=== PATIENT | female | born 1985 | race African-American/Black ===

== ENCOUNTER 2024-12-31 09:30 | Emergency (ER) | payer MEDICAID, OTHER ==
[~2024-12-31] VITALS: Ht 167.6 cm; Wt 54.0 kg
[2024-12-31 09:42] VITALS: O2SAT 100
[2024-12-31 10:29] LABS: CLARITY URINE CLEAR (CLEAR); COLOR URINE YELLOW (YELLOW); GLUCOSE URINE NEGATIVE (NEGATIVE); KETONES URINE NEGATIVE (NEGATIVE); LEUKOCYTE ESTERASE URINE NEGATIVE (NEGATIVE); NITRITE URINE NEGATIVE (NEGATIVE); OCCULT BLOOD URINE 3+ (NEGATIVE); PH URINE 7.5 (4.5-8.0); PROTEIN URINE 1+ (NEGATIVE); SPECIFIC GRAVITY URINE 1.021 (1.005-1.030); UROBILINOGEN URINE 1.0 E.U./dL (0.2-1.0)
[2024-12-31 11:42] LABS: BASOPHILS % 0.8 % (0.0-2.0); EOSINOPHILS % 1.0 % (0.0-5.0); HEMATOCRIT. 34.5 % (36.0-48.0); HEMOGLOBIN. 11.3 g/dL (12.0-16.0); LYMPHOCYTES % 23.4 % (20.0-50.0); MEAN PLATELET VOLUME 8.4 fl (7.4-10.4); MONOCYTES % 8.3 % (2.0-8.0); NEUTROPHILS % 66.5 % (40.0-76.0); PLATELET 337 x1000/uL (130-400); RED BLOOD CELL COUNT 3.78 mill/uL (4.2-5.4); RED CELL DISTRIBUTION WIDTH 14.4 % (11.6-14.6)
[2024-12-31 11:55] LABS: HCG SCREEN POSITIVE
[2024-12-31 11:59] LABS: B-HCG QUANTITATIVE 867 mIU/mL (<6)
[2024-12-31 12:00] LABS: CREATININE 0.7 mg/dL (0.6-1.0); UREA NITROGEN BLOOD < 5 mg/dL (9-23)
[2024-12-31 12:07] LABS: SQUAMOUS EPITHELIAL CELL URINE 1+ /lpf (RARE/1+); WBC URINE 0-2 /hpf (0-2)
[2024-12-31 12:10] LABS: BACTERIA URINE 2+
[2024-12-31 12:11] LABS: INR 1.0
[2024-12-31 14:38] VITALS: BP 128/77; PULSE 82; RESP 14; TEMP 37.2; O2SAT 100
== END 2024-12-31 14:44 | disposition home or self-care (01) ==
LOC: ER 09:30
DX: O20.9 Hemorrhage in early pregnancy, unspecified (principal); R10.20 Pelvic and perineal pain unspecified side; Z3A.00 Weeks of gestation of pregnancy not specified
CPT/HCPCS: 36415; 76801; 80048; 81003; 81025; 84702; 84703; 85025; 86850; 86900; 99284

== ENCOUNTER 2025-01-19 00:06 | Emergency (ER) | payer OTHER ==
[~2025-01-19] VITALS: Ht 165.1 cm; Wt 56.2 kg
[2025-01-19 00:31] VITALS: O2SAT 100
[2025-01-19] MEDS ORDERED: AMOX-494 MT (00:39)
[2025-01-19] MEDS ORDERED: TOPUD MT (00:39)
[2025-01-19] MEDS: ACETAMINOPHEN 500MG TABLET PO ONE (01:17)
[2025-01-19 01:20] VITALS: BP 149/83; PULSE 72; RESP 16; TEMP 37.1; O2SAT 100
== END 2025-01-19 01:21 | disposition home or self-care (01) ==
LOC: ER 00:06
DX: H66.92 Otitis media, unspecified, left ear (principal)
CPT/HCPCS: 99283